=== PATIENT | female | born 1960 | race Caucasian/White ===

== ENCOUNTER 2017-03-27 22:02 | Observation (INO) ==
[2017-03-27] MEDS ORDERED: 0.9 % Sodium Chloride 1,000 ML IVC SCH (23:30)
[2017-03-27] MEDS ORDERED: Ondansetron 4 MG/2 ML VIAL IVP PRN (23:32)
[2017-03-28] MEDS: *HR* HYDROmorphone (PF) 1 MG/ML SYRINGE IVP PRN ×2 (00:06→11:17)
[2017-03-28 06:26] LABS: Basophils # 0.1 K/mcL (0.0-0.2); Basophils % 0.6 %; Eosinophils # 0.1 K/mcL (0.0-0.6); Eosinophils % 1.5 %; Hematocrit 36.9 % (35.3-44.9); Hemoglobin 11.9 g/dL (11.5-15.4); Immature Granulocytes % 0.5 % (0-4); Immature Platelets 2.7 % (1.1-6.1); Lymphocytes # 3.2 K/mcL (0.6-4.6); Lymphocytes % 37.1 %; Mean Corpuscular HGB Conc 32.2 g/dL (31.6-35.5); Mean Corpuscular Hemoglobin 30.4 pg (28.0-33.3); Mean Corpuscular Volume 94.1 fL (83.0-100.0); Monocytes # 0.6 K/mcL (0.0-1.3); Monocytes % 7.1 %; Neutrophils # 4.6 K/mcL (1.6-8.9); Platelet Count 266 K/mcL (140-400); Red Blood Count 3.92 M/mcL (3.82-4.97); Red Cell Distribution Width 13.2 % (11.5-14.5); Segmented Neutrophils % 53.2 %
[2017-03-28 06:40] LABS: BUN/Creatinine Ratio 19 (6-26); Blood Urea Nitrogen 21 mg/dL (7-20); Calcium 9.2 mg/dL (8.6-10.8); Carbon Dioxide 20 mEq/L (19-29); Chloride 112 mEq/L (98-109); Glucose 83 mg/dL (70-99); Osmolality,Calculated 288 (280-300); Sodium 138 mEq/L (136-145); eGFR For African Americans > 60 (> 60); eGFR For Non-African Americans 50 (> 60)
--- NOTE | 2017-03-28 07:17 | Urology History & Physical ---
Date of Encounter: 03/28/17 Time of Encounter: 07:15 Assessment and Plan (1) Elevated serum creatinine Current Visit: Yes Status: Acute Likely from obstructing stone. (2) Kidney stones Current Visit: No Status: Acute Plan on taking the patient to the operating room today for cystoscopy, right retrograde polygrams, right ureteral stent placement History of Present Illness Chief complaint: right flank pain HPI: Ms. Bautista is a 56 year old female with history of kidney stones. Patient is status post left ureteroscopic stone extraction in May 2016. Patient now presents back to the emergency Department secondary to severe right-sided flank pain. Patient had a KUB done which revealed a large 14 mm right renal stone with no obvious ureteral stones. Patient's pain is a 10 out of 10 in nature. This is controlled with IV pain medication. Mild nausea. No fevers. Past Med Surg Social Fam HX - Past Medical History Medical history: kidney stones, migraine Psychiatric history: no psych history - Past Surgical History Surgical History: hysterectomy, other - Social History Smoking Status: Current every day smoker Smokeless Tobacco Status: No Alcohol use: rarely Drug use: none - Family History Father Hx Family Cancer: Yes (lung) Mother Hx Family Cardiac Disorders: Yes Medications and Allergies Naproxen [EC-Naprosyn] 500 mg PO DAILY 04/25/16 [History] Topiramate [Topamax] 100 mg PO DAILY 04/25/16 [History] Allergies prochlorperazine [From Compazine] Allergy (Verified 04/25/16 18:34) Swelling of Lip/Tongue/Throat promethazine [From Phenergan] Allergy (Verified 04/25/16 18:34) Swelling of Lip/Tongue/Throat Review of Systems - Constitutional no chills - EENT Nose, mouth and throat: no dizziness - Cardiovascular no chest pain - Respiratory no cough - Gastrointestinal abdominal pain Exam Initial Vital Signs Temp Pulse Resp BP Pulse Ox 97.5 F L 68 18 137/80 98 03/27/17 23:42 03/27/17 23:42 03/27/17 23:42 03/27/17 23:42 03/27/17 23:42 - General physical appearance Present: well developed - Neck Present: no masses - Respiratory Present: normal respiratory effort - Cardiovascular Cardiovascular exam IM: RRR - Abdomen Abdomen: Present: soft Urology Results - Labs 03/28/17 05:49 03/28/17 05:49 Abnormal lab results Chloride 112 mEq/L (98-109) H 03/28/17 05:49 BUN 21 mg/dL (7-20) H 03/28/17 05:49 Creatinine 1.13 mg/dL (0.57-1.11) H 03/28/17 05:49 Est GFR (Non-Af Amer) 50 (> 60) L 03/28/17 05:49 Diabetes panel 03/28/17 Range/Units 05:49 Sodium 138 (136-145) mEq/L Potassium 4.0 (3.5-4.5) mEq/L Chloride 112 H (98-109) mEq/L Carbon Dioxide 20 (19-29) mEq/L BUN 21 H (7-20) mg/dL Creatinine 1.13 H (0.57-1.11) mg/dL Glucose 83 (70-99) mg/dL Calcium 9.2 (8.6-10.8) mg/dL Calcium panel 03/28/17 Range/Units 05:49 Calcium 9.2 (8.6-10.8) mg/dL Pituitary panel 03/28/17 Range/Units 05:49 Sodium 138 (136-145) mEq/L Potassium 4.0 (3.5-4.5) mEq/L Chloride 112 H (98-109) mEq/L Carbon Dioxide 20 (19-29) mEq/L BUN 21 H (7-20) mg/dL Creatinine 1.13 H (0.57-1.11) mg/dL Glucose 83 (70-99) mg/dL Calcium 9.2 (8.6-10.8) mg/dL Adrenal panel 03/28/17 Range/Units 05:49 Sodium 138 (136-145) mEq/L Potassium 4.0 (3.5-4.5) mEq/L Chloride 112 H (98-109) mEq/L Carbon Dioxide 20 (19-29) mEq/L BUN 21 H (7-20) mg/dL Creatinine 1.13 H (0.57-1.11) mg/dL Glucose 83 (70-99) mg/dL Calcium 9.2 (8.6-10.8) mg/dL All other labs normal. - Imaging Abdominal x-ray: image reviewed
[2017-03-28] MEDS ORDERED: Ondansetron 4 MG/2 ML VIAL ONE (12:28)
[2017-03-28] MEDS ORDERED: *HR* Midazolam HCl 2 MG/2 ML VIAL ONE (12:28)
[2017-03-28] MEDS ORDERED: *HR* FentaNYL (PF) 100 MCG/2 ML VIAL ONE (12:28)
[2017-03-28] MEDS ORDERED: Dexamethasone 4 MG/ML VIAL ONE (12:28)
[2017-03-28] MEDS ORDERED: Lidocaine -MPF 2% 2 ML VIAL ONE (12:28)
[2017-03-28] MEDS ORDERED: *HR* Propofol 200 MG/20 ML VIAL IVP ONE (12:28)
--- NOTE | 2017-03-28 12:34 | Anesthesia Evaluation PreOp ---
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: Denies Any Significant HX Other Medical History: Other (MANDEL's) Anesthesia History: No Prior Anesthetic Complications, Past Anesthesia Alcohol Use: rarely Drug use: none Medications and Allergies Naproxen [EC-Naprosyn] 500 mg PO DAILY 04/25/16 [History] Topiramate [Topamax] 100 mg PO BID 04/25/16 [History] Allergies prochlorperazine [From Compazine] Allergy (Verified 04/25/16 18:34) Swelling of Lip/Tongue/Throat promethazine [From Phenergan] Allergy (Verified 04/25/16 18:34) Swelling of Lip/Tongue/Throat - Meds/Allergy Pre-op Review Medications Reviewed: Yes Allergies Reviewed: Yes Beta Blockers on Current Med List: No Anesthesia Results - Labs 03/28/17 05:49 03/28/17 05:49 Anesthesia Exam Vital Signs/O2 Sat, Most Current Temp Pulse Resp BP Pulse Ox 98.0 F 55 15 109/59 96 03/28/17 10:59 03/28/17 10:59 03/28/17 10:59 03/28/17 10:59 03/28/17 10:59 Height: 5'3'' Weight: 156 lbs NPO (# of Hours): 8 Pain Scale: 0 Pain Scale Used: Numeric (1 - 10) - HEENT Pupil (Motor): EOMI Mallampati: II Teeth: Normal Oral Opening: Greater than 3 - DESK EDITOR LOC: Oriented DESK EDITOR Motor: Normal RUE, Normal LUE, Normal RLE, Normal LLE, Normal Face DESK EDITOR Sensory: Normal: RUE, LUE, RLE, LLE, Face - Cardiac Rhythm: Regular Murmur: None - Pulmonary Breath Sounds: bilateral Clear Respiratory Effort: Symmetrical Anesthesia Assess/Plan ASA Score: 2 Modified Jorge Scale for Level of Consciousness: Cooperative, oriented, and tranquil Anesthetic Plan: General Monitoring Plan: Standard Monitors Recovery Plan: PACU
[2017-03-28] MEDS ORDERED: EPHEDrine 50 MG/ML VIAL ONE (12:59)
[2017-03-28] MEDS ORDERED: *HR* Labetalol 20 MG/4 ML SYRINGE IVP PRN (13:02)
[2017-03-28] MEDS ORDERED: *HR* HYDROmorphone (PF) 1 MG/ML SYRINGE IVP PRN ×2 (13:02→14:15)
[2017-03-28] MEDS ORDERED: Ondansetron 4 MG/2 ML VIAL IVP ONE (13:02)
--- NOTE | 2017-03-28 13:14 | Operative Note ---
Date of procedure: 03/28/17 Pre-op diagnosis: right ureteral stone Post-op diagnosis: same (One distal and one proximal ureteral stone) Anesthesia: AREN Surgeon: Melvin Linn Condition: stable Disposition: PACU Procedure in Detail: Patient was prepped and draped in normal sterile fashion. Timeout procedure performed. I then inserted the cystoscope in the patient's bladder and cannulated the right ureteral orifice using a open ended ureteral catheter at this point I then performed retrograde pyelogram which showed a distal ureteral stone which allowed only minimal contrast to go beyond this. I was able to negotiate a sensor wire beyond the stone and upon entering the kidney I could visualize the wire passing another large right UPJ stone. I then struggled to get the stent beyond the distal stone. I had to finally dilate the distal ureter surrounding the stone using the 8-Slovak dilation sheath. I was unable to negotiate a 4.8 x 26 cm stent with good curl seen in the right upper pole kidney as well as the bladder. The bladder was drained procedure was ended. Patient will be scheduled for return to the operating room in 2-3 weeks for right ureteroscopic stone extraction
--- NOTE | 2017-03-28 13:17 | Discharge Summary ---
Date of Encounter: 03/28/17 Time of Encounter: 13:14 - Discharge Diagnosis (1) Elevated serum creatinine Priority: Secondary Status: Acute (2) Kidney stones Priority: Primary Status: Acute - Discharge Medications Prescriptions: HYDROcodone/Acet 5/325 mg [[place] 5-325 mg] 2 tab PO Q4H PRN #20 tab PRN Reason: Pain Oxybutynin [Ditropan] 5 mg PO TID PRN #50 tablet PRN Reason: bladder spasms Home Medications: Naproxen [EC-Naprosyn] 500 mg PO DAILY 04/25/16 [History] Topiramate [Topamax] 100 mg PO BID 04/25/16 [History] HYDROcodone/Acet 5/325 mg [[place] 5-325 mg] 2 tab PO Q4H PRN #20 tab 03/28/17 [Rx ] Oxybutynin [Ditropan] 5 mg PO TID PRN #50 tablet 03/28/17 [Rx] Allergies/Adverse Reactions: Allergies prochlorperazine [From Compazine] Allergy (Verified 04/25/16 18:34) Swelling of Lip/Tongue/Throat promethazine [From Phenergan] Allergy (Verified 04/25/16 18:34) Swelling of Lip/Tongue/Throat Procedures and tests throughout hospitalization: Cystoscopy, right retrograde PolyGram, right ureteral stent placement on 2016 Labs on day of discharge: Labs from last 24 hours 03/28/17 03/28/17 05:49 05:49 WBC 8.7 RBC 3.92 Hgb 11.9 Hct 36.9 MCV 94.1 MCH 30.4 MCHC 32.2 RDW 13.2 Plt Count 266 MPV 10.0 Immature Gran % 0.5 Seg Neutrophils % 53.2 Lymphocytes % 37.1 Monocytes % 7.1 Eosinophils % 1.5 Basophils % 0.6 Neutrophils # 4.6 Lymphocytes # 3.2 Monocytes # 0.6 Eosinophils # 0.1 Basophils # 0.1 Immature Plt Fraction 2.7 Sodium 138 Potassium 4.0 Chloride 112 H Carbon Dioxide 20 BUN 21 H Creatinine 1.13 H Est GFR ( Amer) > 60 Est GFR (Non-Af Amer) 50 L BUN/Creatinine Ratio 19 Glucose 83 Calculated Osmolality 288 Calcium 9.2 Date of admission: 03/27/17 23:19 Primary care physician: Bala Tay DO Discharging clinician: Melvin Linn Anticipated date of discharge: 03/28/17 - Patient Status Disposition: Home, Self-Care Condition: Good Functional capacity at discharge: independent ambulation Overall status at discharge: patient is progressing back to baseline - Discharge Instructions Follow Up With: Bala Tay DO [Primary Care Provider] - Melvin Linn MD [Partnered Physician] - (Patient will be scheduled per the office for return trip to the operating room) - Diet and Activity Activity: increase activity as tolerated Diet: advance to your usual diet - Hospital Course Hospital course: Ms. Bautista is a 56 year old female who was brought in for observation for right ureteral stone. Patient was taken operating room and stent placed. Discharged home after she recovered Time spent discussing smoking cessation with patient: 3 to 10 minutes - Time Spent with Patient Total time spent providing and/or coordinating discharge services: Less than 30 minutes Exam Initial Vital Signs Temp Pulse Resp BP Pulse Ox 97.5 F L 68 18 137/80 98 03/27/17 23:42 03/27/17 23:42 03/27/17 23:42 03/27/17 23:42 03/27/17 23:42 - General physical appearance Present: well developed - Respiratory Present: normal respiratory effort
--- NOTE | 2017-03-28 13:50 | Anesthesia Evaluation Post Op ---
Date of Encounter: 03/28/17 Time of Encounter: 13:50 - Vital Signs Vital Signs: Vital Signs/O2 Sat, Most Current Temp Pulse Resp BP Pulse Ox 97.1 F L 73 14 129/80 100 03/28/17 13:18 03/28/17 13:38 03/28/17 13:38 03/28/17 13:38 03/28/17 13:28 - Lungs Lungs: Clear Ascult./Percussion - Airway Airway: Non-obstructed - Cardiovascular Regular Rate - Mental Status Mental Status: Alert & Oriented, Answers Appropriately - Pain Pain Scale: 0 Pain Scale used: Numeric (1 - 10) - Nausea Vomiting Nausea Vomiting: Not Present - Hydration Hydration: Ice chips, Has not voided - Discharge PostOp Status: Transfer Patient to floor
[2017-03-28] MEDS ORDERED: Ondansetron 4 MG/2 ML VIAL IVP PRN (14:15)
[2017-03-28] MEDS ORDERED: *HR* HYDROcodone/Acet 5/325 mg TABLET PO PRN (14:15)
[2017-03-28] MEDS ORDERED: 0.9 % Sodium Chloride 1,000 ML IVC SCH (14:15)
[2017-03-28 16:29] VITALS: BP 106/55
== END 2017-03-28 16:30 | disposition home or self-care (01) ==
LOC: 3BNU
PROVIDERS: ADMIT Urology; ATTEND Urology

== ENCOUNTER 2017-09-24 09:29 | Observation (INO) ==
[2017-09-24] MEDS ORDERED: Naloxone 0.4 MG/ML INJ IVP PRN (12:10)
[2017-09-24] MEDS ORDERED: Ondansetron 4 MG/2 ML VIAL IVP PRN (12:10)
[2017-09-24] MEDS ORDERED: *HR* HYDROcodone/Acet 5/325 mg TABLET PO PRN (12:10)
--- NOTE | 2017-09-24 12:15 | Urology History & Physical ---
Date of Encounter: 09/24/17 Time of Encounter: 12:13 Assessment and Plan (1) Left ureteral calculus Current Visit: No Status: Acute Patient be brought in for observation for pain control. If patient fails to pass her stone we will schedule stone extraction tomorrow. History of Present Illness Chief complaint: left flank pain HPI: Ms. Bautista is a 56 year old female with history of recurrent kidney stones. Patient now with persistent left-sided flank pain. Pain is a 8 out of 10. Sharp in nature with no obvious radiation. CT scan was done which revealed a left mid 1 cm ureteral stone. Mild hydronephrosis proximal to this. No fevers. No persistent nausea or vomiting. Past Med Surg Social Fam HX - Past Medical History Medical history: kidney stones, migraine Psychiatric history: no psych history - Past Surgical History Surgical History: hysterectomy, other - Social History Smoking Status: Current every day smoker Smokeless Tobacco Status: No Alcohol use: rarely Drug use: none - Family History Father Hx Family Cancer: Yes (lung) Mother Hx Family Cardiac Disorders: Yes Medications and Allergies Topiramate [Topamax] 100 mg PO BID 04/25/16 [History] Naproxen Sodium [Naproxen Sodium ER] 500 mg PO DAILY 09/24/17 [History] 3 Allergy/AdvReac Type Severity Reaction Status Date / Time prochlorperazine Allergy Swelling Verified 09/24/17 07:59 [From Compazine] of Lip/Tongue/Throat promethazine [From Phenergan] Allergy Swelling Verified 09/24/17 07:59 of Lip/Tongue/Throat Review of Systems - Constitutional no chills, no fever(s) - EENT Nose, mouth and throat: no dizziness - Cardiovascular no chest pain - Respiratory no cough - Gastrointestinal no abdominal pain - Musculoskeletal back pain - Integumentary no erythema - Neurological no confusion Exam - General physical appearance Present: well developed - Eyes Present: PERRL - ENT Present: normal nares - Neck Present: no masses - Respiratory Present: normal respiratory effort - Cardiovascular Cardiovascular exam IM: RRR - Abdomen Abdomen: Present: soft Urology Results - Labs All other labs normal. - Imaging CT scan - abdomen: image reviewed CT scan - pelvis: image reviewed
[2017-09-24] MEDS: Ringers Solution, Lactated 1,000 ML IVC SCH (14:49)
[2017-09-24] MEDS: *HR* HYDROmorphone (PF) 1 MG/ML SYRINGE IVP PRN ×2 (14:50→21:25)
[2017-09-24] MEDS: Topiramate 100 MG TABLET PO SCH (21:30)
[2017-09-24] MEDS: Ibuprofen 600 MG TABLET PO PRN (23:28)
[2017-09-24] MEDS: cefTRIAXone 1,000 MG in Water for inj. (sterile) 10 ML IVP SCH (23:29)
[2017-09-25] MEDS: Ringers Solution, Lactated 1,000 ML IVC SCH ×5 (00:05→20:14)
[2017-09-25 05:02] LABS: Basophils % 0.4 %; Eosinophils # 0.1 K/mcL (0.0-0.6); Eosinophils % 0.6 %; Hematocrit 30.2 % (35.3-44.9); Hemoglobin 9.9 g/dL (11.5-15.4); Immature Granulocytes % 0.3 % (0-4); Lymphocytes # 1.7 K/mcL (0.6-4.6); Lymphocytes % 18.1 %; Mean Corpuscular HGB Conc 32.8 g/dL (31.6-35.5); Mean Corpuscular Hemoglobin 30.5 pg (28.0-33.3); Mean Corpuscular Volume 92.9 fL (83.0-100.0); Mean Platelet Volume 9.6 fL (9.4-12.4); Monocytes # 0.7 K/mcL (0.0-1.3); Monocytes % 7.6 %; Neutrophils # 6.9 K/mcL (1.6-8.9); Platelet Count 268 K/mcL (140-400); Red Blood Count 3.25 M/mcL (3.82-4.97); Red Cell Distribution Width 12.5 % (11.5-14.5)
[2017-09-25 05:12] LABS: Calcium 8.8 mg/dL (8.6-10.8); Potassium 3.7 mEq/L (3.5-4.5)
[2017-09-25] MEDS: *HR* HYDROmorphone (PF) 1 MG/ML SYRINGE IVP PRN (06:57)
--- NOTE | 2017-09-25 07:10 | Urology Progress Note ---
Date of Encounter: 09/25/17 Time of Encounter: 07:09 - Assessment and Plan (1) Left ureteral calculus Current Visit: No Status: Inactive Assessment and plan: Plan still for IV fluids, antibiotics. Patient was taken to the operating room today. Will either undergo left ureteroscopic stone extraction or left ureteral stent placement. Progress Note Narrative: Patient seen this a.m. Patient had fever to 101 last night. Patient feels better this a.m. Blood cultures were obtained. Patient's Rocephin was given last night. Objective Initial Vital Signs Temp Pulse Resp BP Pulse Ox 97.3 F L 69 16 145/86 97 09/24/17 12:15 09/24/17 12:15 09/24/17 12:15 09/24/17 12:15 09/24/17 12:15 - General physical appearance Present: well developed - Abdomen Present: soft - Labs 09/25/17 04:17 09/25/17 04:17 Diabetes panel 09/25/17 Range/Units 04:17 Sodium 135 L (136-145) mEq/L Potassium 3.7 (3.5-4.5) mEq/L Chloride 107 (98-109) mEq/L Carbon Dioxide 19 (19-29) mEq/L BUN 29 H (7-20) mg/dL Creatinine 1.59 H (0.57-1.11) mg/dL Glucose 102 H (70-99) mg/dL Calcium 8.8 (8.6-10.8) mg/dL Calcium panel 09/25/17 Range/Units 04:17 Calcium 8.8 (8.6-10.8) mg/dL Pituitary panel 09/25/17 Range/Units 04:17 Sodium 135 L (136-145) mEq/L Potassium 3.7 (3.5-4.5) mEq/L Chloride 107 (98-109) mEq/L Carbon Dioxide 19 (19-29) mEq/L BUN 29 H (7-20) mg/dL Creatinine 1.59 H (0.57-1.11) mg/dL Glucose 102 H (70-99) mg/dL Calcium 8.8 (8.6-10.8) mg/dL Adrenal panel 09/25/17 Range/Units 04:17 Sodium 135 L (136-145) mEq/L Potassium 3.7 (3.5-4.5) mEq/L Chloride 107 (98-109) mEq/L Carbon Dioxide 19 (19-29) mEq/L BUN 29 H (7-20) mg/dL Creatinine 1.59 H (0.57-1.11) mg/dL Glucose 102 H (70-99) mg/dL Calcium 8.8 (8.6-10.8) mg/dL Consult Discharge Plan - Plan Referrals: Melvin Linn MD [Partnered Physician] - Bala Tay DO [Primary Care Provider] -
[2017-09-25] MEDS: Topiramate 100 MG TABLET PO SCH ×2 (07:48→20:03)
[2017-09-25] MEDS: cefTRIAXone 1,000 MG in Water for inj. (sterile) 10 ML IVP SCH (07:48)
[2017-09-25] MEDS: Ibuprofen 600 MG TABLET PO PRN (08:14)
[2017-09-25] MEDS ORDERED: cefTRIAXone 1,000 MG in Water for inj. (sterile) 10 ML IVP SCH (09:00)
--- NOTE | 2017-09-25 16:22 | Anesthesia Evaluation PreOp ---
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 Any Significant HX, Other (occasional migraine) Other Medical History: Denies Any Significant HX Anesthesia History: No Prior Anesthetic Complications, Past Anesthesia Alcohol Use: rarely Drug use: none Medications and Allergies Topiramate [Topamax] 100 mg PO BID 04/25/16 [History] Naproxen Sodium [Naproxen Sodium ER] 500 mg PO DAILY 09/24/17 [History] 3 Allergy/AdvReac Type Severity Reaction Status Date / Time prochlorperazine Allergy Swelling Verified 09/24/17 07:59 [From Compazine] of Lip/Tongue/Throat promethazine [From Phenergan] Allergy Swelling Verified 09/24/17 07:59 of Lip/Tongue/Throat - Meds/Allergy Pre-op Review Medications Reviewed: Yes Allergies Reviewed: Yes Beta Blockers on Current Med List: No Anesthesia Results - Labs 09/25/17 04:17 09/25/17 04:17 Anesthesia Exam Selected Entries 09/25/17 11:02 Temperature 99.0 F Pulse Rate 75 Respiratory Rate 16 Blood Pressure 114/66 O2 Sat by Pulse Oximetry 92 Weight: 71 NPO (# of Hours): over 8 hours - HEENT Pupil (Motor): Pupils equal Mallampati: II Teeth: Normal Oral Opening: Greater than 3 - Cardiac Rhythm: Regular Murmur: None - Pulmonary Breath Sounds: bilateral Rhonchi Respiratory Effort: Symmetrical Anesthesia Assess/Plan ASA Score: 2 Modified Jorge Scale for Level of Consciousness: Cooperative, oriented, and tranquil Anesthetic Plan: General Monitoring Plan: Standard Monitors Recovery Plan: PACU
[2017-09-25] MEDS ORDERED: Albuterol 2.5 MG/3 ML NEBULIZER IH ONE (16:30)
[2017-09-25] MEDS ORDERED: Albuterol 2.5 MG/3 ML NEBULIZER ONE (16:31)
[2017-09-25] MEDS ORDERED: *HR* Midazolam HCl 2 MG/2 ML VIAL ONE (16:34)
[2017-09-25] MEDS ORDERED: Lidocaine -MPF 2% 2 ML VIAL ONE (16:34)
[2017-09-25] MEDS ORDERED: *HR* Propofol 200 MG/20 ML VIAL IVP ONE (16:34)
[2017-09-25] MEDS ORDERED: *HR* FentaNYL (PF) 100 MCG/2 ML VIAL ONE ×2 (16:34→17:32)
[2017-09-25] MEDS ORDERED: *HR* HYDROmorphone (PF) 1 MG/ML SYRINGE IVP PRN ×2 (16:57→19:06)
[2017-09-25] MEDS ORDERED: *HR* Labetalol 20 MG/4 ML SYRINGE IVP PRN (16:57)
--- NOTE | 2017-09-25 17:36 | Operative Note ---
Date of procedure: 09/25/17 Pre-op diagnosis: left ureteral stone Post-op diagnosis: same (Gross pus seen coming from left ureteral orifice) Anesthesia: AREN Surgeon: Melvin Linn Condition: stable Disposition: PACU Procedure in Detail: Patient was prepped and draped in normal sterile fashion. Timeout procedure performed. The cystoscope was inserted into the patient's bladder. Left ureteral orifice was cannulated using a Glidewire. This easily negotiated past the left ureteral stone using fluoroscopy. Gross pus was seen coming from the left ureteral orifice upon this maneuver. I then placed a 6 x 24 cm ureteral stent with good curl seen in the left kidney and in the bladder. The bladder was drained procedure was ended. Patient taken to PACU in stable condition.
[2017-09-25] MEDS ORDERED: Ibuprofen 600 MG TABLET PO PRN (19:06)
[2017-09-25] MEDS ORDERED: *HR* HYDROcodone/Acet 5/325 mg TABLET PO PRN (19:06)
[2017-09-25] MEDS ORDERED: Naloxone 0.4 MG/ML INJ IVP PRN (19:06)
[2017-09-25] MEDS ORDERED: Ondansetron 4 MG/2 ML VIAL IVP PRN (19:06)
--- NOTE | 2017-09-25 19:21 | Anesthesia Evaluation Post Op ---
Date of Encounter: 09/25/17 Time of Encounter: 18:00 - Vital Signs Vital Signs: Vital Signs/O2 Sat, Most Current Temp Pulse Resp BP Pulse Ox 98.2 F 72 14 118/75 95 09/25/17 18:25 09/25/17 18:25 09/25/17 18:10 09/25/17 18:10 09/25/17 18:25 - Lungs Lungs: Clear Ascult./Percussion - Airway Airway: Non-obstructed - Cardiovascular Regular Rate, Baseline Rhythm - Mental Status Mental Status: Alert & Oriented, Answers Appropriately - Pain Pain Scale: 0 Pain Scale used: Numeric (1 - 10) - Nausea Vomiting Nausea Vomiting: Not Present - Hydration Hydration: Ice chips, Has not voided - Discharge PostOp Status: Transfer Patient to floor
[2017-09-26] MEDS: Ringers Solution, Lactated 1,000 ML IVC SCH (02:11)
[2017-09-26 04:54] LABS: Basophils % 0.1 %; Hemoglobin 9.1 g/dL (11.5-15.4); Immature Granulocytes % 0.3 % (0-4); Lymphocytes # 0.6 K/mcL (0.6-4.6); Lymphocytes % 8.3 %; Mean Corpuscular HGB Conc 32.5 g/dL (31.6-35.5); Mean Corpuscular Hemoglobin 30.4 pg (28.0-33.3); Mean Corpuscular Volume 93.6 fL (83.0-100.0); Mean Platelet Volume 9.7 fL (9.4-12.4); Monocytes # 0.3 K/mcL (0.0-1.3); Monocytes % 3.7 %; Neutrophils # 6.3 K/mcL (1.6-8.9); Platelet Count 270 K/mcL (140-400); Red Blood Count 2.99 M/mcL (3.82-4.97); Red Cell Distribution Width 12.7 % (11.5-14.5); Segmented Neutrophils % 87.6 %
[2017-09-26 05:12] LABS: Calcium 8.7 mg/dL (8.6-10.8); Potassium 4.2 mEq/L (3.5-4.5)
[2017-09-26 06:51] VITALS: BP 126/53
--- NOTE | 2017-09-26 07:17 | Discharge Summary ---
Date of Encounter: 09/26/17 Time of Encounter: 07:14 - Discharge Diagnosis (1) Left ureteral calculus Priority: Primary Status: Inactive - Discharge Medications Prescriptions: HYDROcodone/Acet 5/325 mg [[place] 5-325 mg] 2 tab PO Q4H PRN #15 tablet PRN Reason: pain 1-6 Levofloxacin [Levaquin] 500 mg PO DAILY #14 tablet Oxybutynin [Ditropan] 5 mg PO TID PRN #30 tablet PRN Reason: bladder spasms Home Medications: Topiramate [Topamax] 100 mg PO BID 04/25/16 [History] Naproxen Sodium [Naproxen Sodium ER] 500 mg PO DAILY 09/24/17 [History] HYDROcodone/Acet 5/325 mg [[place] 5-325 mg] 2 tab PO Q4H PRN #15 tablet 09/26/17 [Rx] Levofloxacin [Levaquin] 500 mg PO DAILY #14 tablet 09/26/17 [Rx] Oxybutynin [Ditropan] 5 mg PO TID PRN #30 tablet 09/26/17 [Rx] Allergies/Adverse Reactions: 3 Allergy/AdvReac Type Severity Reaction Status Date / Time prochlorperazine Allergy Swelling Verified 09/24/17 07:59 [From Compazine] of Lip/Tongue/Throat promethazine [From Phenergan] Allergy Swelling Verified 09/24/17 07:59 of Lip/Tongue/Throat Procedures and tests throughout hospitalization: cysto and left ureteral stent placement on 09/25/17 Labs on day of discharge: Labs from last 24 hours 09/26/17 09/26/17 09/25/17 04:07 04:07 08:34 WBC 7.2 RBC 2.99 L Hgb 9.1 L Hct 28.0 L MCV 93.6 MCH 30.4 MCHC 32.5 RDW 12.7 Plt Count 270 MPV 9.7 Immature Gran % 0.3 Seg Neutrophils % 87.6 Lymphocytes % 8.3 Monocytes % 3.7 Eosinophils % 0.0 Basophils % 0.1 Neutrophils # 6.3 Lymphocytes # 0.6 Monocytes # 0.3 Eosinophils # 0.0 Basophils # 0.0 Sodium 139 Potassium 4.2 Chloride 111 H Carbon Dioxide 19 BUN 23 H Creatinine 1.27 H Est GFR ( Amer) 53 L Est GFR (Non-Af Amer) 44 L BUN/Creatinine Ratio 18 Glucose 154 H POC Glucose 93 H Calculated Osmolality 295 Calcium 8.7 Date of admission: 09/24/17 10:58 Primary care physician: Bala Tay DO Discharging clinician: Melvin Linn Anticipated date of discharge: 09/26/17 - Patient Status Disposition: Home, Self-Care Condition: Good Functional capacity at discharge: independent ambulation Overall status at discharge: patient is progressing back to baseline - Discharge Instructions Follow Up With: Bala Tay DO [Primary Care Provider] - Melvin Linn MD [Partnered Physician] - 10/17/17 - Diet and Activity Activity: increase activity as tolerated Diet: advance to your usual diet - Hospital Course Hospital course: Ms. Bautista is a 56 year old female with history of left ureteral stone. Patient had fever and thus patient was taken to or for left ureteral stent placement. did well overnight after stent placement with no further fevers. pain well controlled. Time spent discussing smoking cessation with patient: 3 to 10 minutes - Time Spent with Patient Total time spent providing and/or coordinating discharge services: Less than 30 minutes Exam Initial Vital Signs Temp Pulse Resp BP Pulse Ox 97.3 F L 69 16 145/86 97 09/24/17 12:15 09/24/17 12:15 09/24/17 12:15 09/24/17 12:15 09/24/17 12:15 - General physical appearance Present: well developed - Eyes Present: PERRL - ENT Present: normal nares - Neck Present: no masses - Respiratory Present: normal respiratory effort - Cardiovascular Cardiovascular exam IM: RRR - VTE Documentation of Mechanical Device: Intermittent pneumatic compression device
[2017-09-26] MEDS: Topiramate 100 MG TABLET PO SCH (07:52)
[2017-09-26] MEDS ORDERED: cefTRIAXone 1,000 MG in Water for inj. (sterile) 10 ML IVP SCH (09:00)
== END 2017-09-26 10:50 | disposition home or self-care (01) ==
LOC: 3ANU
PROVIDERS: ADMIT Urology; ATTEND Urology